=== PATIENT | female | born 1985 | race Caucasian/White ===

== ENCOUNTER 2019-06-08 20:34 | Emergency (ER) | payer SELFPAY ==
[~2019-06-08] VITALS: Ht 172.7 cm; Wt 79.4 kg
[2019-06-08 20:34] VITALS: BP 145/85
--- NOTE | 2019-06-08 20:34 | NUR ---
KELLY Diallo. Addendum: 06/08/19 at 2043 by CARMELITA SITTING UP*
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
[2019-06-08] MEDS: IBUPROFEN 800 MG TAB PO ONE (21:31)
[2019-06-08] MEDS: ALPRAZolam 0.5 MG TAB PO ONE (21:32)
[2019-06-08 21:40] VITALS: BP 145/85
--- NOTE | 2019-06-08 21:40 | NUR ---
Patient discharged with v/s stable. Written and verbal after care instructions given and explained. Patient verbalized understanding. [place] [employer] OFFICER LEANDRO BUENO PT in custody. All questions addressed prior to discharge. Advised to follow up with PMD. PT AMBULATED WITH PD. NO PAIN 0/10 PRIOR TO D/C.
== END 2019-06-08 21:40 ==
LOC: MED 20:34
DX: M79.641 Pain in right hand (principal); I10 Essential (primary) hypertension; F41.9 Anxiety disorder, unspecified; F12.90 Cannabis use, unspecified, uncomplicated; Z02.89 Encounter for other administrative examinations
CPT/HCPCS: 73130; 81002; 81025; 99283